=== PATIENT | male | born 1990 | race Caucasian/White ===

== ENCOUNTER 2019-03-31 01:30 | Emergency (ER) | payer OTHER ==
[~2019-03-31] VITALS: Ht 182.9 cm; Wt 138.3 kg
[2019-03-31 02:37] LABS: INFLUENZA A ANTIGEN Negative (Negative); INFLUENZA B ANTIGEN Negative (Negative)
[2019-03-31] MEDS ORDERED: AUGMENTIN 875-1 EACH PO (03:04)
[2019-03-31 03:10] VITALS: BP 143/98
== END 2019-03-31 03:10 | disposition home or self-care (01) ==
LOC: M.ERS 01:30
PROVIDERS: Emergency Medicine Emergency Medical Services
DX: H66.92 Otitis media, unspecified, left ear (principal); Z88.8 Allergy status to other drugs, medicaments and biological substances